=== PATIENT | male | born 1995 | race Caucasian/White ===

== ENCOUNTER 2022-09-18 18:52 | Emergency (ER) | payer MEDICARE, MEDICAID, SELFPAY ==
--- NOTE | 2022-09-18 19:12 | ED_ITS ---
HPI - Eye Problem General Chief complaint: Eye Problems Stated complaint: foreign object in eye Time Seen by Provider: 09/18/22 19:25 Source: patient Mode of arrival: ambulatory Limitations: no limitations History of Present Illness HPI Narrative: Patient is a 27-year-old male presents emergency department for evaluation of a foreign body sensation to the left eye. He states that he was working under his vehicle doing an oil change when he felt something landed into his eye and he was unable to remove it. Vision is blurry. Does not wear contact lenses. Related Data Previous Rx's Medication Instructions Recorded ofloxacin 0.3 % eye drops 2 drp ophthalmic (eye) QID 5 days 09/18/22 #5 mL Allergies Allergy/AdvReac Type Severity Reaction Status Date / Time No Known Allergies Allergy Verified 09/18/22 19:13 Review of Systems Review of Systems: Yes all other systems are reviewed and are negative COUNTS INCLUDE 234 BEDS AT THE [facility] Past Medical History Attestation statement: The following information was validated with the patient. Source: old records reviewed Social History Social History Advance Directives: No Advance Directives Information Provided: No Physical Exam Vital Signs: Vital Signs: Last Vital Signs Temp 98.3 F 09/18/22 19:13 Pulse 72 09/18/22 19:13 Resp 17 09/18/22 19:13 BP 113/57 L 09/18/22 19:13 Pulse Ox 94 09/18/22 19:13 O2 Del Method Room Air 09/18/22 19:13 BMI result Body Mass Index 26.6 Appearance: Alert. Oriented X3. No acute distress. Head: Normal external exam. Normocephalic. Atraumatic.? No Giraldo signs noted. No raccoon eyes noted Eyes: PERRLA. EOMI. Conjunctiva erythematous? Corneal abrasion with fluorescein uptake upon examination? Sclera injected.? Eyelids normal.? Anterior chamber normal.? No photophobia noted.? Pressure to right eye is 16.? Pressure to left eye is 17. Visual acuity to right eye 20/50.? Visual acuity to left eye 20/40. Removal of small particle foreign body Neck: Normal inspection. Neck supple. CVS: Normal heart rate and rhythm. Heart sound normal. No murmurs noted. Pulses normal throughout. Respiratory: No respiratory distress. Painless inspiration. Lung sounds normal. Back:? ?Full range of motion noted. Skin: Skin warm and dry.? Normal skin color.? No rashes/lesions/lacerations noted. Neuro: Oriented X 3.? No motor deficit.? No sensory deficit.? Reflexes normal. Medications Administered Discontinued Medications Generic Name Dose Route Start Last Admin Trade Name Latrell PRN Reason Stop Dose Admin Diphtheria/Tetanus/Acell Pertussis 0.5 ml 09/18/22 19:45 09/18/22 20:13 Diphth,Pertus(Acell),Tet Adult 0.5 Ml Syringe IM 09/18/22 19:46 0.5 ml .ONCE ONE Administration Fluorescein Sodium 1 strip 09/18/22 19:19 09/18/22 20:14 Fluorescein Sodium Strip EYE-LEFT 09/18/22 19:20 1 strip ONCE ONE Administration Tetracaine HCl 3 drop 09/18/22 19:19 09/18/22 20:14 Tetracaine Hcl/Pf 0.5% Oph Angie 4 Ml Drops EYE-LEFT 09/18/22 19:20 3 drop ONCE ONE Administration Medical Decision Making Medical Decision Making MDM Narrative: Patient is a 27-year-old male presents emergency department for evaluation of foreign body sensation to left eye as per HPI. Sustained after working under vehicle. Upon examination a small particle was removed from the left eye, fluorescein uptake upon examination consistent with corneal abrasion. Does not were contact lenses. No penetrating injury, EOMI, no hyphema, not consistent with globe rupture, scleritis, iritis. Intra-ocular pressures are normal, not consistent with glaucoma. Date of last tetanus vaccination is unknown, updated today. Discussed plan of care for discharge, antibiotic ophthalmic drops, outpatient follow-up with Ophthalmology. Reviewed worrisome signs and symptoms that would warrant re-evaluation emergency department. All questions answered. Stable for discharge. Differential Diagnosis Differential Diagnoses: The differential diagnosis associated with the presentation includes (Foreign body, corneal abrasion, corneal ulcer, hyphema, globe rupture, conjunctivitis, scleritis, iritis) Independent Historian Clinical information obtained from an independent historian. History obtained from or confirmed by: Spouse (Significant other who confirms history) Prescription Management I considered prescription management with: Antibiotic Discharge Plan Discharge Clinical Impression: Corneal abrasion Patient Disposition: Home, Self-Care Instructions: Corneal Abrasion (ED) Additional Instructions: As discussed, please complete the antibiotic eyedrops as prescribed. Contact the cardiopulmonary specialist tomorrow or coming to arrange for a follow-up visit. Return back to emergency department with any new or worsening symptoms or concerns. You can take ibuprofen 200 mg, 3 tablets (600mg) every 6-8 hours as needed for pain, in addition to Tylenol 500 mg, 2 tablets (1,000mg) every 4-6 hours as needed for pain, but not to exceed 3 doses daily (3,000mg).? Prescriptions: New ofloxacin 0.3 % drops 2 drp ophthalmic (eye) QID 5 Days Qty: 5 0RF Referrals: [facility] [Physician] - Interventions: ED Discharge Assessment Last Done: 09/18/22 20:19 Discharge Date/Time: 09/18/22 20:19
[2022-09-18 19:13] VITALS: BP 113/57; PULSE 72; RESP 17; TEMP 36.8; O2SAT 94; BMI 26.6
[2022-09-18] MEDS: Diphth,Pertus(ACell),Tet Adult 0.5 ML SYRINGE IM (20:13)
[2022-09-18] MEDS: Tetracaine HCl/PF 0.5% Oph Sol 4 ML DROPS 3 DROP EYE-LEFT (20:14)
[2022-09-18] MEDS: Fluorescein Sodium STRIP 1 STRIP EYE-LEFT (20:14)
== END 2022-09-18 20:19 | disposition home or self-care (01) ==
PROVIDERS: Emergency Provider Emergency Medicine
DX: S05.02XA Injury of conjunctiva and corneal abrasion without foreign body, left eye, initial encounter (principal); Y93.89 Activity, other specified; Y92.89 Other specified places as the place of occurrence of the external cause; Y99.9 Unspecified external cause status
CPT/HCPCS: 90471; 90715; 99282; 99283; 99284

== ENCOUNTER 2022-09-18 22:40 | Emergency (ER) | payer MEDICARE, MEDICAID, SELFPAY ==
[2022-09-18 23:03] VITALS: BP 121/68; PULSE 69; RESP 20; TEMP 36.9; O2SAT 98; BMI 25.8
--- NOTE | 2022-09-19 00:16 | ED_ITS ---
HPI - General Adult General Chief complaint: Eye Problems Stated complaint: foreign object in eye seen earlier Time Seen by Provider: 09/19/22 00:14 Source: patient Mode of arrival: ambulatory Limitations: no limitations History of Present Illness HPI narrative: Patient is a 27 year old assigned male at with no reported medical history presenting to the emergency department today with left eye pain. Patient states that he was seen here earlier today and diagnosed with a corneal abrasion but he feels like there is still something in the left eye and he would like it to be checked again. Patient denies any dizziness, lightheadedness, abdominal pain, nausea, vomiting, fever, chills, blurry vision, double vision, loss of vision, chest pain, difficulty breathing, shortness of breath, back pain, night sweats, pain with urination, increased urinary frequency, increased urinary urgency, blood in his urine or stool, syncope or a near syncopal episode, bowel incontinence, bladder incontinence, bowel retention, bladder retention, or any other complaints at this time. Onset (ago): hour(s) Location: eyes and left Radiation: non-radiation Severity: mild Severity scale (1-10): 3 Quality: aching and dull Pain Consistency: constant Relieving factors: none Exacerbating factors: none Associated symptoms: denies other symptoms Treatments prior to arrival: none Related Data Previous Rx's Medication Instructions Recorded ofloxacin 0.3 % eye drops 2 drp ophthalmic (eye) QID 5 days 09/18/22 #5 mL erythromycin 5 mg/gram (0.5 %) eye 0.5 inch ophthalmic (eye) Q4H #3.5 09/19/22 ointment grams Allergies Allergy/AdvReac Type Severity Reaction Status Date / Time No Known Allergies Allergy Verified 09/18/22 19:13 Review of Systems Constitutional: Constitutional: Reports no additional constitutional complaints, Denies chills, Denies fever(s) and Denies night sweats Eyes: Eyes: Reports no additional eye complaints, Denies blurry vision, Denies change in vision, Denies diplopia, Denies eye discharge, Denies loss of vision and Reports eye pain (left eye) ENT: Denies dizziness Cardiovascular: Cardiovascular: Reports no additional cardiovascular complaints, Denies chest pain, Denies lightheadedness, Denies Loss of Consciousness and Denies dyspnea Respiratory: Respiratory: Reports no additional respiratory complaints and Denies dyspnea Gastrointestinal: Gastrointestinal: Reports no additional gastrointestinal complaints, Denies abdominal pain, Denies melena, Denies hematochezia, Denies c hange in bowel habits and Denies change in stool character Genitourinary: Genitourinary: Reports no additional male genitourinary complaints, Denies hematuria, Denies oliguria, Denies difficulty urinating, Denies dysuria, Denies urinary frequency, Denies urinary hesitancy, Denies urinary incontinence and Denies urinary urgency Musculoskeletal: Musculoskeletal: Reports no additional musculoskeletal complaints, Denies numbness and Denies tingling Neurologic: Denies dizziness, Denies loss of vision, Denies numbness and Denies tingling Psychiatric: Psychiatric: Reports no additional psychiatric complaints Endocrine: Endocrine: Reports no additional endocrine complaints Hematologic/Lymphatic: Hematologic/Lymphatic: Reports no additional hematologic/lymphatic complaints Allergic/Immunologic: Allergic/Immunologic: Reports no additional aller gic/immunologic complaints PMFSH Past Medical History Attestation statement: The following information was validated with the patient. Source: old records reviewed and nursing notes reviewed Social History Social History Advance Directives: No Advance Directives Information Provided: Yes Physical Exam ED Vital Signs: Vital Signs - 24 hr 09/18/22 23:03 Temperature 98.4 F Pulse Rate 69 Respiratory Rate 20 Blood Pressure 121/68 Pulse Oximetry 98 Oxygen Delivery Method Room Air BMI result Body Mass Index 25.8 Const General: cooperative, no acute distress, alert and awake Nutritional Appearance: well nourished Orientation/consciousness: patient oriented x3 Limitations: no limitations [facility] Head: Yes normal to inspection and Yes atraumatic Ears: hearing grossly normal bilaterally and external ears normal General nose exam: Normal external nose present, no nasal discharge noted and no epistaxis Face and sinus: Yes normal facial exam, No abrasion and No laceration Mouth: Normal oral and palatal mucosa present, no drooling and no muffled voice Eyes Other: small abrasion to the inside of the left upper eye lid, no active bleeding Conjunctivae: conjunctivae normal Corneas: other (abrasion) Pupils: Equal, round and reactive pupils present EOM: EOMs intact bilaterally Neck Neck: Yes normal visual inspection, Yes full ROM and Yes no lymphadenopathy Chest Chest palpation & inspection: normal inspection of the chest Resp Effort & Inspection: normal respiratory effort and able to speak in complete sentences GI Inspection: Yes normal to inspection Neuro General: patient oriented x3 and moves all extremities Cranial nerves: Yes Equal, round and reactive pupils present Cognition (Neuro): normal cognition Motor exam (neuro): 5/5 motor strength present throughout Sensory Exam: Normal double simultaneous stimulation for sensation Coordination: [id number] test normal Extrem General: Yes normal to inspection, Yes full ROM and Yes capillary refill normal Psych Appearance: grossly normal Mental Status: mental status grossly normal Affect: normal affect Attitude: cooperative Thought process: Normal thought process present Thought content: Normal thought content present Insight: Good insight present (Psych) Medications Administered Discontinued Medications Generic Name Dose Route Start Last Admin Trade Name Freq PRN Reason Stop Dose Admin Erythromycin 1 cm 09/19/22 00:44 09/19/22 00:59 Erythromycin Base 0.5% Oph Oin 1 Gm Tube EYE-LEFT 09/19/22 00:45 1 cm ONCE ONE Administration Medical Decision Making Medical Decision Making MDM Narrative: Patient is a 27 year old assigned male at with no reported medical history presenting to the emergency department today with continued left eye pain. Patient's physical exam showed a corneal abrasion as noted in his previous ED visit and a small abrasion to the inner portion of this upper left eye lid with no active bleeding. I explained my physical exam findings to the patient. I answered all questions asked by the patient. I stressed the importance of the patient taking his medication as prescribed. I stressed the importance of the patient following up with his primary care provider and an drug discovery informatics specialist. I stressed the importance of the patient returning to the emergency department immediately if his symptoms were to worsen or if he were to develop any dizziness, shortness of breath, difficulty breathing, chest pain, blurry vision, loss of vision, nausea, vomiting, abdominal pain, fever, chills, back pain, or any other complaints. Patient verbalized agreement and understanding with this treatment plan and discharge. Differential Diagnosis Differential Diagnoses: The differential diagnosis associated with the presentation includes Corneal abrasion Abrasion of the inner eye lid Foreign body sensation Prescription Management I considered prescription management with: Antibiotic (patient prescribed antib iotic ointment.) Discharge Plan Discharge Clinical Impression: Corneal abrasion, Injury of eyelid Patient Disposition: Home, Self-Care Instructions: Corneal Abrasion (DC) Additional Instructions: Follow up with your primary care provider and an drug discovery informatics specialist. Continue using the drops you were given and use the ointment prescribed today. Return to the emergency department immediately if your symptoms worsen or if you develop any dizziness, shortness of breath, difficulty breathing, chest pain, blurry vision, loss of vision, nausea, vomiting, abdominal pain, fever, chills, back pain, or any other complaints. Prescriptions: New erythromycin 5 mg/gram (0.5 %) ointment 0.5 inch ophthalmic (eye) Q4H Qty: 3.5 0RF No Action ofloxacin 0.3 % drops 2 drp ophthalmic (eye) QID 5 Days Qty: 5 0RF Referrals: [facility]] (Call to establish and follow up with a primary care provider. If you already have a primary care provider, please follow up with them.) [facility] [Provider Group] (Call to establish and follow up with a primary care provider. If you already have a primary care provider, please follow up with them.) [facility]] (Call to establish and follow up with a primary care provider. If you already have a primary care provider, please follow up with them.) [facility] [Physician] - (Call to establish and follow up with an drug discovery informatics specialist.) Interventions: ED Discharge Assessment Last Done: 09/19/22 01:17 Discharge Date/Time: 09/19/22 01:17 Print Language: Malay
[2022-09-19] MEDS: Erythromycin Base 0.5% Oph Oin 1 GM TUBE 1 CM EYE-LEFT (00:59)
== END 2022-09-19 01:17 | disposition home or self-care (01) ==
PROVIDERS: Emergency Provider Emergency Medicine
DX: H57.12 Ocular pain, left eye (principal); S05.02XD Injury of conjunctiva and corneal abrasion without foreign body, left eye, subsequent encounter; X58.XXXD Exposure to other specified factors, subsequent encounter; S09.93XA Unspecified injury of face, initial encounter; X58.XXXA Exposure to other specified factors, initial encounter; Y93.9 Activity, unspecified; Y92.9 Unspecified place or not applicable; Y99.9 Unspecified external cause status
CPT/HCPCS: 99282; 99283

== ENCOUNTER 2022-10-16 07:42 | Emergency (ER) | payer MEDICARE, SELFPAY ==
--- NOTE | ~2022-10-16 | CT_ITS ---
EXAMINATION: CT ABDOMEN AND PELVIS WITHOUT CONTRAST CLINICAL INFORMATION: Right flank pain COMPARISON: None available. TECHNIQUE: Multidetector volumetric imaging was performed from the superior aspect of the liver through the pubic symphysis. Sagittal and coronal reformatted images were obtained on the technologist's workstation. This CT examination was performed using dose optimization techniques as appropriate, variously including the following: *Automated exposure control *Adjustment of mA and/or kV according to patient size (this includes techniques or standardized protocols for targeted exams where dose is matched to indication/reason for exam; i.e. extremities or head) *Use of iterative reconstruction technique DLP: 642 mGy-cm FINDINGS: LUNG BASES: The visualized lung bases are unremarkable. LIVER, GALLBLADDER, AND BILIARY TREE: The liver is normal in size, shape, and attenuation. No focal hepatic lesion or biliary ductal dilatation is present. The gallbladder is unremarkable with no evidence of radiopaque gallstones, gallbladder wall thickening, or obvious pericholecystic inflammatory changes. PANCREAS: Unremarkable. SPLEEN: Unremarkable. ADRENAL GLANDS: Unremarkable. KIDNEYS AND URETERS: Mild right hydroureteronephrosis, with a 2.5 mm calculus in the right ureterovesicular junction. No renal calculi. No left-sided hydroureteronephrosis. BLADDER: Unremarkable. GASTROINTESTINAL TRACT: The small and large bowel are unremarkable. Moderate volume stool in the large colon.. The appendix is unremarkable. ABDOMINAL WALL: No significant hernia is appreciated. LYMPH NODES: No adenopathy seen. VASCULAR: Normal caliber aorta. PELVIC VISCERA: Unremarkable. OSSEOUS STRUCTURES: No acute osseous abnormality. 2 small sclerotic foci in the right acetabulum, nonspecific, perhaps bone islands. CT/CT abdomen pelvis wo IV con IMPRESSION: 1. Mild right hydroureteronephrosis, with a 2.5 mm calculus in the right ureterovesical junction. 2. Additional findings and details as above. Fleischner guidelines were followed.
[2022-10-16 07:55] VITALS: BP 123/68; PULSE 61; RESP 20; TEMP 36.5; O2SAT 100
[2022-10-16 07:56] VITALS: BP 123/68; PULSE 56; RESP 18; TEMP 36.5; O2SAT 97; BMI 26.0
--- NOTE | 2022-10-16 08:08 | ED.GENADULT ---
HPI - General Adult General Chief complaint: Abdominal Pain Stated complaint: kidney stone Time Seen by Provider: 10/16/22 07:48 Source: patient, family and RN notes reviewed Mode of arrival: ambulatory Limitations: no limitations History of Present Illness HPI narrative: This is a 27-year-old male, with a history of kidney stones, presenting to the emergency department with complaints of right-sided flank pain starting this morning. Patient reports that the pain woke him up from sleep. Pain is constant. He endorses nausea as well as multiple episodes of vomiting this morning. Denies any fevers, chills, chest pain, shortness of breath, diarrhea or constipation. Denies dysuria, hematuria, urinary frequency or urgency. He last had a kidney stone last year which he was able to pass on his own. Denies taking any medications at home to treat his current symptoms. No other complaints or concerns at this time. MD complaint: Right flank pain Onset (ago): minute(s) Radiation: flank Severity: severe Quality: stabbing and aching Pain Consistency: constant Relieving factors: none Exacerbating factors: none Associated symptoms: nausea/vomiting Treatments prior to arrival: none Related Data Previous Rx's Medication Instructions Recorded ofloxacin 0.3 % eye drops 2 drp ophthalmic (eye) QID 5 days 09/18/22 #5 mL erythromycin 5 mg/gram (0.5 %) eye 0.5 inch ophthalmic (eye) Q4H #3.5 09/19/22 ointment grams ketorolac 10 mg tablet 10 mg PO Q6H PRN pain 3 days #12 10/16/22 tabs ondansetron HCl 4 mg tablet 4 mg PO Q6-8H PRN nausea and 10/16/22 vomiting #10 tabs tamsulosin 0.4 mg capsule (Flomax) 0.4 mg PO DAILY 7 days #7 caps 10/16/22 Allergies Allergy/AdvReac Type Severity Reaction Status Date / Time No Known Allergies Allergy Verified 10/18/22 07:38 Review of Systems Review of Systems: Yes all other systems are reviewed and are negative Constitutional: Constitutional: Reports as per [facility] Past Medical History Attestation statement: The following information was validated with the patient. Social History Social History Alcohol intake: never Smoked in Last 30 Days: No Use of substances other than those prescribed or required for medical reasons: No Advance Directives: No Advance Directives Information Provided: No Physical Exam ED Vital Signs: Vital Signs - 24 hr 10/16/22 07:55 10/16/22 07:56 10/16/22 10:23 Temperature 97.7 F 97.7 F 98.4 F Pulse Rate 61 56 52 Respiratory Rate 20 18 16 Blood Pressure 123/68 123/68 106/56 L Pulse Oximetry 100 97 99 Oxygen Delivery Method Room Air Room Air Room Air BMI result Body Mass Index 26.0 Const General: cooperative, comfortable and no acute distress Orientation/consciousness: patient oriented x3 Limitations: no limitations HENMT Head: Yes normal to inspection, Yes normocephalic and Yes atraumatic Ears: hearing grossly normal bilaterally General nose exam: Normal external nose present Face and sinus: Yes normal facial exam Mouth: Normal oral and palatal mucosa present, oropharynx normal and moist mucous membranes Throat: Yes posterior oropharynx normal Eyes General: appearance normal, both eyes and all related structures Eyelids: Yes eyelids normal Conjunctivae: conjunctivae normal Sclerae: sclerae normal Pupils: Equal, round and reactive pupils present EOM: EOMs intact bilaterally Neck Neck: Yes normal visual inspection, Yes full ROM and Yes no lymphadenopathy Lymphatic: no lymphadenopathy noted Chest Chest palpation & inspection: normal inspection of the chest Resp Effort & Inspection: normal respiratory effort and able to speak in complete sentences Auscultation: clear to auscultation bilaterally, no crackles, no rales, no rhonchi and no wheezes Cardio Rate: regular rate Rhythm: regular rhythm Heart sounds: S1 normal heart sound present and S2 normal heart sound present GI Other: Abdomen is soft, nontender, nondistended, normoactive bowel sounds present in all 4 quadrants. Inspection: Yes normal to inspection Other: + CVA tenderness on the right. Skin General skin exam: no rashes or lesions noted Trauma: no lacerations or abrasions Wounds: no wounds Neuro General: patient oriented x3 and moves all extremities Cranial nerves: Yes Equal, round and reactive pupils present Extrem General: Yes normal to inspection Right upper extremity: normal to inspection Left upper extremity: normal to inspection Right lower extremity: normal to inspection Left lower extremity: normal to inspection Course Reevaluation(s) Reevaluation #1: Patient re-evaluated, pain has resolved after receiving Toradol [address] abdomen still pending. Time: 08:52 Reevaluation #2: CT scan showing mild right hydroureter nephrosis with a 2.5 mm calculus in the right ureterovesical junction. Chemistry pending, UA pending Time: 09:31 Reevaluation #3: Chemistry WNL, no evidence of RAMSES. UA revealing hematuria, no signs of infection. Pt's pain has completely resolved after toradol. D/C on ketorolac, flomax and zofran. discussed return precautions. Pt understands and agrees with plan. Pt stable for discharge. Consultations Consultation #3: nding, Medications Administered Discontinued Medications Generic Name Dose Route Start Last Admin Trade Name Freq PRN Reason Stop Dose Admin Sodium Chloride 1,000 mls @ 999 mls/hr 10/16/22 08:01 10/16/22 09:14 Ns IV 10/16/22 09:01 Infused .Q1H1M ONE Infusion Ketorolac Tromethamine 30 mg 10/16/22 08:01 10/16/22 08:12 Ketorolac Tromethamine 30 Mg/Ml Vial IVPUSH 10/16/22 08:02 30 mg ONCE ONE Administration Ondansetron HCl 4 mg 10/16/22 08:01 10/16/22 08:12 Ondansetron Hcl 4 Mg/2 Ml Vial IVPUSH 10/16/22 08:02 4 mg ONCE ONE Administration Medical Decision Making Medical Decision Making [facility] Narrative: This is a 27-year-old male, with a past medical history of kidney stones, presenting to the emergency department with complaints of right-sided flank pain starting this morning. On examination, patient appears to be visibly uncomfortable secondary to pain. Vital signs all within normal limits. No fevers. Presentation concerning for nephrolithiasis versus pyelonephritis. Less likely cauda equina syndrome given no urinary/bowel incontinence or saddle anesthesias. Less likely muscle strain/MSK related given no recent injury or trauma. Plan: Labs, UA, pain management, antiemetics, CT without contrast Differential Diagnosis Differential Diagnoses: The differential diagnosis associated with the presentation includes Nephrolithiasis, pyelonephritis, hydronephrosis, obstructive uropathy Admission/Observation Consideration of admission/observation: Escalation of care including admission/observation considered Lab Data MDM Lab Attestation statement: I reviewed the patient's lab results. Mild leukocytosis, H&H stable. Urine with moderate blood, consistent with nephrolithiasis. No evidence of infection. 10/16/22 08:08 10/16/22 08:08 Labs: Lab Results 10/16/22 10/16/22 10/16/22 Range/Units 08:08 09:22 10:24 WBC 11.5 H (4.8-10.8) X10*3/uL RBC 5.62 (4.60-5.80) X10*6/uL Hgb 15.9 (14.0-18.0) g/dl Hct 47.7 (42.0-52.0) % MCV 84.9 (80.0-98.0) fL MCH 28.3 (27.0-33.0) pg MCHC 33.3 (31.0-36.0) g/dl RDW 12.4 (11.0-16.0) % Plt Count 221 (160-400) X10*3/uL MPV 12.0 (9.4-12.4) fL Immature Gran % (Auto) 0.3 (0.0-0.4) % Neut % (Auto) 52.5 (45-73) % Lymph % (Auto) 36.8 (20-40) % [place] % (Auto) 8.2 (2-11) % Eos % (Auto) 1.7 (0-4) % Baso % (Auto) 0.5 (0-2) % Lymph # (Auto) 4.2 (1.2-4.9) X10*3/uL [place] # (Auto) 0.9 (0.1-1.2) X10*3/uL Eos # (Auto) 0.2 (0.0-0.4) X10*3/uL Baso # (Auto) 0.1 (0.0-0.2) X10*3/uL Abs Immat Gran (auto) 0.04 H (0.00-0.03) X10*3/uL Absolute Neuts (auto) 6.0 (2.0-8.3) x10*3/uL Absolute Nucleated RBC 0.000 (0.0-0.012) X10*3/uL Nucleated RBC % (auto) 0.0 (0.0-0.2) /100WBC Sodium 141 (135-145) mmol/L Potassium 4.0 (3.3-5.1) mmol/L Chloride 107 (96-108) mmol/L Carbon Dioxide 25 (22-29) mmol/L Anion Gap 13 (12-20) BUN 11 (9-16) mg/dL Creatinine 0.93 (0.5-1.4) mg/dL Estim Creat Clear Calc 133.2 Estimated GFR > 60 Random Glucose 94 (60-115) mg/dL Calcium 9.2 (8.4-10.2) mg/dL Total Bilirubin 0.5 (0.0-1.0) mg/dL Direct Bilirubin 0.2 (0.0-0.5) mg/dL AST 21 (5-37) U/L ALT 25 (0-40) U/L Alkaline Phosphatase 85 (39-117) U/L Total Protein 6.5 (6.5-8.0) g/dL Albumin 3.9 (3.5-5.0) g/dL Lipase 15 (8-78) U/L Urine Color Yellow Urine Appearance Clear Urine pH 7.5 (5.0-9.0) Ur Specific [place] 1.010 (1.005-1.025) Urine Protein Negative (Neg-Trace) mg/dL Urine Glucose (UA) Negative (Negative) mg/dL Urine Ketones Negative (Negative) mg/dL Urine Blood Trace H (Negative) Urine Nitrite Negative (Negative) Ur Leukocyte Esterase Negative (Negative) Urine RBC 3-5 H (0-2) /HPF Urine WBC 0-5 (0-5) /HPF Ur Squamous Epith Cells 0-2 (0-2) /HPF Urine Bacteria None Seen (None Seen) Hyaline Casts 0-2 (0-2) /LPF Radiology Impression Discussion of test interpretation with radiology: I have reviewed the radiologist's reading. Radiologist Impression: EXAMINATION: CT ABDOMEN AND PELVIS WITHOUT CONTRAST? CLINICAL INFORMATION: Right flank pain? COMPARISON: None available. TECHNIQUE: Multidetector volumetric imaging was performed from the superior aspect of the liver through the pubic symphysis. Sagittal and coronal reformatted images were obtained on the technologist's workstation.? This CT examination was performed using dose optimization techniques as appropriate, variously including the following: *Automated exposure control *Adjustment of mA and/or kV according to patient size (this includes techniques or standardized protocols for targeted exams where dose is matched to indication/reason for exam; i.e. extremities or head) *Use of iterative reconstruction technique DLP: 642 mGy-cm FINDINGS: LUNG BASES: The visualized lung bases are unremarkable.? LIVER, GALLBLADDER, AND BILIARY TREE: The liver is normal in size, shape, and attenuation. No focal hepatic lesion or biliary ductal dilatation is present. The gallbladder is unremarkable with no evidence of radiopaque gallstones, gallbladder wall thickening, or obvious pericholecystic inflammatory changes.? PANCREAS: Unremarkable.? SPLEEN: Unremarkable.? ADRENAL GLANDS: Unremarkable.? KIDNEYS AND URETERS: Mild right hydroureteronephrosis, with a 2.5 mm calculus in the right ureterovesicular junction. No renal calculi. No left-sided hydroureteronephrosis.? BLADDER: Unremarkable.? GASTROINTESTINAL TRACT: The small and large bowel are unremarkable. Moderate volume stool in the large colon.. The appendix is unremarkable.? ABDOMINAL WALL: No significant hernia is appreciated.? LYMPH NODES: No adenopathy seen. VASCULAR: Normal caliber aorta. PELVIC VISCERA: Unremarkable.? OSSEOUS STRUCTURES: No acute osseous abnormality. 2 small sclerotic foci in the right acetabulum, nonspecific, perhaps bone islands.? CT/CT abdomen pelvis wo IV con IMPRESSION: ? 1. Mild right hydroureteronephrosis, with a 2.5 mm calculus in the right ureterovesical junction. ? 2. Additional findings and details as above.? ? Fleischner guidelines were followed. Dictated By: Jose Rios MD External Record Review External record reviewed: Inpatient record, Office record, Outpatient record, Prior outpatient labs, Prior outpatient radiology, Primary care record and Outside ED record Discharge Plan Discharge Clinical Impression: Kidney stones Patient Disposition: Home, Self-Care Instructions: Kidney Stones (ED), How to Strain Your Urine (ED) Additional Instructions: Your CT scan reveals a 2.5 mm kidney stone. You will likely be able to pass this on your own, without any surgical intervention. Use strainer when urinating to ensure you have passed the stone. Please drink plenty of fluids and get plenty of rest. Take prescribed medication as directed. If your taking prescribed Toradol, do not take with any other NSAID medications such as ibuprofen or Naprosyn. You may take Tylenol for breakthrough pain. If any new or worsening symptoms occur, including but not limited to worsening pain, unable to your drink secondary to vomiting, please return for re-evaluation. You may follow-up with Urology, call to make appointment. Prescriptions: New ketorolac 10 mg tablet 10 mg PO Q6H PRN (Reason: pain) 3 Days Qty: 12 0RF Rx Instructions: Patient tolerated Toradol injection in department on 10/16/22. Do not exceed Toradol 40 mg in 24 hours ondansetron HCl 4 mg tablet 4 mg PO Q6-8H PRN (Reason: nausea and vomiting) Qty: 10 0RF tamsulosin [Flomax] 0.4 mg capsule 0.4 mg PO DAILY 7 Days Qty: 7 0RF No Action ofloxacin 0.3 % drops 2 drp ophthalmic (eye) QID 5 Days Qty: 5 0RF erythromycin 5 mg/gram (0.5 %) ointment 0.5 inch ophthalmic (eye) Q4H Qty: 3.5 0RF [place] [facility] [place] [facility] [place] Interventions: ED Discharge Assessment Last Done: 10/16/22 11:26 Discharge Date/Time: 10/16/22 11:27
[2022-10-16 08:12] LABS: MANUAL DIFF FLAG NO
[2022-10-16] MEDS: Ketorolac Tromethamine 30 MG/ML VIAL IVPUSH (08:12)
[2022-10-16] MEDS: ondansetron HCL 4 MG/2 ML VIAL IVPUSH (08:12)
[2022-10-16] MEDS: 0.9 % Sodium Chloride 1,000 ML 999 ML IV (08:12)
[2022-10-16 08:16] LABS: Basophils Absolute Auto 0.1 X10*3/uL (0.0-0.2); Basophils Percent Auto 0.5 % (0-2); Eosinophils Absolute Auto 0.2 X10*3/uL (0.0-0.4); Eosinophils Percent Auto 1.7 % (0-4); Hematocrit 47.7 % (42.0-52.0); Hemoglobin 15.9 g/dl (14.0-18.0); Imm Gran Abs Auto 0.04 X10*3/uL (0.00-0.03); Imm Gran Pct Auto 0.3 % (0.0-0.4); Lymphocytes Absolute Auto 4.2 X10*3/uL (1.2-4.9); Lymphocytes Percent Auto 36.8 % (20-40); Mean Corpuscular HGB Conc 33.3 g/dl (31.0-36.0); Mean Corpuscular Hemoglobin 28.3 pg (27.0-33.0); Mean Corpuscular Volume 84.9 fL (80.0-98.0); Monocytes Absolute Auto 0.9 X10*3/uL (0.1-1.2); Monocytes Percent Auto 8.2 % (2-11); Neutrophils Percent Auto 52.5 % (45-73); Platelet Count 221 X10*3/uL (160-400); Red Blood Count 5.62 X10*6/uL (4.60-5.80); Red Cell Distribution Width 12.4 % (11.0-16.0); White Blood Count 11.5 X10*3/uL (4.8-10.8)
[2022-10-16 10:23] VITALS: BP 106/56; PULSE 52; RESP 16; TEMP 36.9; O2SAT 99
[2022-10-16 10:31] LABS: Appearance Urine Clear; Color Urine Yellow; Glucose Urine UA Negative (Negative); Leukocyte Esterase Urine Negative (Negative); Nitrite Urine Negative (Negative); PH 7.5 (5.0-9.0); UMIC TRIGGER UACC YES; Urine Blood Trace (Negative); Urine Ketones Negative (Negative); Urine Protein Negative (Neg-Trace)
[2022-10-16 10:34] LABS: Bacteria Urine None Seen (None Seen); Hyaline Casts Urine 0-2 /LPF (0-2); Squamous Epithelial Cell Urine 0-2 /HPF (0-2); WBC Urine 0-5 /HPF (0-5)
[2022-10-16 10:34] LABS: Alanine Aminotransferase 25 U/L (0-40); Albumin Level 3.9 g/dL (3.5-5.0); Alkaline Phosphatase 85 U/L (39-117); Anion Gap 13 (12-20); Aspartate Amino Transferase 21 U/L (5-37); Bilirubin Direct 0.2 mg/dL (0.0-0.5); Bilirubin Total 0.5 mg/dL (0.0-1.0); Blood Urea Nitrogen 11 mg/dL (9-16); Calcium 9.2 mg/dL (8.4-10.2); Carbon Dioxide 25 mmol/L (22-29); Chloride 107 mmol/L (96-108); Creatinine Clr Calc Pharmacy 133.2; Estimated Glomerular Filt Rate > 60; Glucose Random 94 mg/dL (60-115); Lipase 15 U/L (8-78); Sodium 141 mmol/L (135-145); Total Protein 6.5 g/dL (6.5-8.0)
== END 2022-10-16 11:27 | disposition home or self-care (01) ==
PROVIDERS: Physician Assistant Medical; Emergency Provider Emergency Medicine
DX: N20.0 Calculus of kidney (principal); R10.9 Unspecified abdominal pain; Z79.899 Other long term (current) drug therapy
CPT/HCPCS: 36415; 74176; 80048; 80076; 81001; 83690; 85025; 99284; 99285; J1885; J2405

== ENCOUNTER 2022-10-18 07:32 | Emergency (ER) | payer MEDICARE, SELFPAY ==
[2022-10-18] VITALS (7 sets, daily range): BP systolic 99–132; BP diastolic 42–78; PULSE 45–71; RESP 14–19; TEMP 36.6–37.2; O2SAT 98–100; BMI 27.2
--- NOTE | ~2022-10-18 | US_ITS ---
EXAMINATION: US RETROPERITONEAL LIMITED (RENAL ONLY) CLINICAL INFORMATION: Right flank pain. History of stones.. COMPARISON: CT abdomen and pelvis 10/16/2022 TECHNIQUE: Routine grayscale imaging of kidneys and bladder was performed. FINDINGS: RIGHT KIDNEY: 10.8 x 5.6 x 6.8 cm (SAG x AP x TRV). The kidney is normal in size, contour, and echogenicity. Renal cortical thickness is normal. No calculi or focal parenchymal lesions. There is mild hydronephrosis with proximal dilated ureter seen.. LEFT KIDNEY: 11.8 x 6.1 x 5.1 cm (SAG x AP x TRV). The kidney is normal in size, contour, and echogenicity. Renal cortical thickness is normal. No calculi or focal parenchymal lesions. No hydronephrosis. US/US renal BI IMPRESSION: 1. Mild right hydroureteronephrosis and dilated proximal ureter. On recent CT patient had a right UVJ stone. 2. Left kidney is unremarkable. 3. There are no echogenic renal calculi.
--- NOTE | 2022-10-18 07:37 | ED_ITS ---
HPI - General Adult General Chief complaint: Urogenital-Male Stated complaint: Kidney Stones Time Seen by Provider: 10/18/22 07:36 Source: patient Mode of arrival: ambulatory Limitations: no limitations History of Present Illness HPI narrative: Patient is a 27 year old male with a history of kidney stones presenting with right flank pain. Patient explains that he was a seen here two days ago, was found to have a kidney stone and was treated with medication but the pain has now returned. He reports 11/10 right sided flank pain. Patient also states that the pain has led him to be nauseous and vomit several times today. Denies fever, chills, chest pain, shortness of breath, changes in urination or dysuria. Related Data Previous Rx's Medication Instructions Recorded ofloxacin 0.3 % eye drops 2 drp ophthalmic (eye) QID 5 days 09/18/22 #5 mL erythromycin 5 mg/gram (0.5 %) eye 0.5 inch ophthalmic (eye) Q4H #3.5 09/19/22 ointment grams ketorolac 10 mg tablet 10 mg PO Q6H PRN pain 3 days #12 10/16/22 tabs ondansetron HCl 4 mg tablet 4 mg PO Q6-8H PRN nausea and 10/16/22 vomiting #10 tabs tamsulosin 0.4 mg capsule (Flomax) 0.4 mg PO DAILY 7 days #7 caps 10/16/22 morphine 15 mg immediate release 15 mg PO Q6H PRN pain 5 days #10 10/18/22 tablet tabs Allergies Allergy/AdvReac Type Severity Reaction Status Date / Time No Known Allergies Allergy Verified 10/18/22 07:38 Review of Systems Review of Systems: Constitutional : No Weight loss, No Fever, No Chills, + Fatigue and Malaise ENT/Mouth : No sore throat, No Rhinorrhea Eyes: No Eye Pain, No Swelling, No Redness Cardiovascular : No Chest Pain, No SOB, No Dyspnea on Exertion, No Orthopnea, No Edema, No Palpitations Respiratory : No Cough, No Sputum, No Wheezing Gastrointestinal : + Nausea and Vomiting, No Diarrhea, No Constipation, No abdominal Pain, No Hematochezia, No Melena Genitourinary : No Dysuria, No Urinary Frequency, No Hematuria, Musculoskeletal : +Right flank pain, No joint pain, No Joint Swelling Skin : No Skin Lesions, No rash Neuro : No Weakness, No Numbness, No Dizziness, No Headache Psych : No Anxiety/Panic, No Depression All other systems reviewed and are negative Yes all other systems are reviewed and are negative [facility] Past Medical History Attestation statement: The following information was validated with the patient. Source: old records reviewed and nursing notes reviewed Social History Social History Alcohol intake: never Smoked in Last 30 Days: No Use of substances other than those prescribed or required for medical reasons: No Advance Directives: No Advance Directives Information Provided: No Physical Exam ED Vital Signs: Vital Signs - 24 hr 10/18/22 07:38 10/18/22 08:05 10/18/22 09:22 Temperature 98 F 98.9 F Pulse Rate 71 61 45 L Respiratory Rate 19 18 18 Blood Pressure 123/78 132/76 109/55 L Pulse Oximetry 100 100 100 Oxygen Delivery Method Room Air Room Air Room Air 10/18/22 11:56 10/18/22 13:54 10/18/22 14:01 Temperature 98.7 F 98.4 F Pulse Rate 50 50 Respiratory Rate 18 14 16 Blood Pressure 110/64 99/42 L Pulse Oximetry 100 100 Oxygen Delivery Method Room Air Room Air BMI result Body Mass Index 27.2 VSS Appearance: Alert.? Oriented X3.?Patient is visibly uncomfortable and in pain, rocking back and forth in bed. Head: Normocephalic, atraumatic, no step-offs or deformities Eyes: Pupils equal, round and reactive to light.? CVS: Normal heart rate and rhythm.? Pulses normal.? Respiratory: No respiratory distress.? Breath sounds normal.? Abdomen: Soft and nontender.? Skin: Skin warm and dry.? Normal skin color.? Normal skin turgor.? Extremities: No lower extremity edema.? No calf ttp. 5/5 strength to bilateral upper and lower extremities Back: +Right flank tenderness, No midline tenderness, no C-spine tenderness, full range of motion. Neuro: Oriented X 3.? No motor deficit.? No sensory deficit. CN 2-12 intact Course Reevaluation(s) Reevaluation #1: CBC within normal limits. Chemistry with slightly low potassium 3.2, troponin negative. Patient's urine with trace blood and urine rbc's. No bacteria no leukocyte esterases or nitrates no signs of UTI. Ultrasound showing mild right hydroureter nephrosis and dilated proximal ureter on recent CT patient had a right UVJ stone, small, left kidney unremarkable. No echogenic renal calculi. I did discuss this case with Urology and discussed ultrasound findings, Dr. Marielena bishop recommends Dilaudid for pain control, an additional L of fluids, does not think a CT scan of abdomen pelvis repeat is necessary. She would like to be informed on patient's pain in about an hour. Will reach back out to her. Time: 13:48 Reevaluation #2: Patient reports his pain is completely gone. Discussed this with Dr. baez will discharge patient home on morphine for pain control. He should continue taking his meds that were prescribed to him on his last visit encouraged urology follow-up as soon as possible. Educated patient on diagnosis and treatment plan, answered all question, patient verbalizes understanding. At this time patient will be discharged home, advised to return with new or worsening symptoms. Educated on worrisome signs and symptoms and when to return. At this time I feel comfortable discharge home. Time: 15:33 Medications Administered Discontinued Medications Generic Name Dose Route Start Last Admin Trade Name Freq PRN Reason Stop Dose Admin Diphenhydramine HCl 25 mg 10/18/22 12:45 10/18/22 12:51 Diphenhydramine Hcl 50 Mg/Ml Vial IVPUSH 10/18/22 12:46 25 mg ONCE ONE Administration Hydromorphone HCl 0.5 mg 10/18/22 13:45 10/18/22 14:01 Hydromorphone Hcl 0.5 Mg/0.5 Ml Syringe IVPUSH 10/18/22 13:46 0.5 mg ONCE ONE Administration Protocol Sodium Chloride 1,000 mls @ 999 mls/hr 10/18/22 08:15 10/18/22 09:22 Ns IV 10/18/22 09:15 Infused .Q1H1M RAOUL Infusion Sodium Chloride 1,000 mls @ 999 mls/hr 10/18/22 13:45 10/18/22 13:58 Ns IV 10/18/22 14:45 999 mls/hr .Q1H1M RAOUL Administration Ceftriaxone Sodium 1 gm/ 50 mls @ 100 mls/hr 10/18/22 13:45 10/18/22 14:03 Sodium Chloride IV 10/18/22 14:14 100 mls/hr ONCE ONE Administration Ketorolac Tromethamine 30 mg 10/18/22 08:01 10/18/22 08:21 Ketorolac Tromethamine 15 Mg/Ml Vial IM 10/18/22 08:02 30 mg ONCE ONE Administration Lorazepam 1 mg 10/18/22 08:55 10/18/22 09:16 Lorazepam 1 Mg Tablet PO 10/18/22 08:56 1 mg ONCE ONE Administration Metoclopramide HCl 10 mg 10/18/22 12:45 10/18/22 12:51 Metoclopramide Hcl 10 Mg/2 Ml Vial IVPUSH 10/18/22 12:46 10 mg ONCE ONE Administration Morphine Sulfate 4 mg 10/18/22 08:04 10/18/22 08:22 Morphine Sulfate 4 Mg/Ml Cartridge IVPUSH 10/18/22 08:05 4 mg ONCE ONE Administration Protocol Ondansetron HCl 4 mg 10/18/22 09:14 10/18/22 09:19 Ondansetron Hcl 4 Mg/2 Ml Vial IVPUSH 10/18/22 09:15 4 mg ONCE ONE Administration Prednisone 20 mg 10/18/22 13:45 10/18/22 13:57 Prednisone 20 Mg Tablet PO 10/18/22 13:46 20 mg ONCE ONE Administration Medical Decision Making Medical Decision Making [facility] Narrative: 0740 27 year old male presenting with intermittent right flank pain that has been going for a few days, worsening today after being seen two days ago for similar symptoms. Nausea and vomiting are new symptoms starting yesterday. Exam significant for right flank tenderness. This is likely nephrolithiasis. Unlikely cystitis, pyelonephritis due to lack of fever, chills, or urinary symptoms. Unlikely muscle spasms, sprain or strain due to lack of trauma or injury. Unlikely cauda equina due to lack of trauma, incontinence or paresthesias no signs of epidural abscess or cord compression. Plan: labs, urine, imaging Differential Diagnosis Differential Diagnoses: The differential diagnosis associated with the presentation includes This is likely nephrolithiasis. Unlikely cystitis, pyelonephritis due to lack of fever, chills, or urinary symptoms. Unlikely muscle spasms, sprain or strain due to lack of trauma or injury. Unlikely cauda equina due to lack of trauma, incontinence or paresthesias no signs of epidural abscess or cord compression. Admission/Observation Consideration of admission/observation: Escalation of care including admission/observation considered unlikely Consult Healthcare Provider Management of the patient was discussed with: Rn Embedded (Urology ) Lab Data [facility] Lab Attestation statement: I reviewed the patient's lab results. 10/18/22 08:15 10/18/22 09:07 Labs: Lab Results 10/18/22 10/18/22 10/18/22 Range/Units 08:15 09:07 09:07 WBC 9.3 (4.8-10.8) X10*3/uL RBC 5.68 (4.60-5.80) X10*6/uL Hgb 16.0 (14.0-18.0) g/dl Hct 46.5 (42.0-52.0) % MCV 81.9 (80.0-98.0) fL MCH 28.2 (27.0-33.0) pg MCHC 34.4 (31.0-36.0) g/dl RDW 12.1 (11.0-16.0) % Plt Count 193 (160-400) X10*3/uL MPV 11.7 (9.4-12.4) fL Immature Gran % (Auto) 0.2 (0.0-0.4) % Neut % (Auto) 69.9 (45-73) % Lymph % (Auto) 21.3 (20-40) % Ogle % (Auto) 7.7 (2-11) % Eos % (Auto) 0.6 (0-4) % Baso % (Auto) 0.3 (0-2) % Lymph # (Auto) 2.0 (1.2-4.9) X10*3/uL Ogle # (Auto) 0.7 (0.1-1.2) X10*3/uL Eos # (Auto) 0.1 (0.0-0.4) X10*3/uL Baso # (Auto) 0.0 (0.0-0.2) X10*3/uL Abs Immat Gran (auto) 0.02 (0.00-0.03) X10*3/uL Absolute Neuts (auto) 6.5 (2.0-8.3) x10*3/uL Absolute Nucleated RBC 0.000 (0.0-0.012) X10*3/uL Nucleated RBC % (auto) 0.0 (0.0-0.2) /100WBC Sodium 142 (135-145) mmol/L Potassium 3.2 L (3.3-5.1) mmol/L Chloride 106 (96-108) mmol/L Carbon Dioxide 23 (22-29) mmol/L Anion Gap 16 (12-20) BUN 13 (9-16) mg/dL Creatinine 0.97 (0.5-1.4) mg/dL Estim Creat Clear Calc 127.7 Estimated GFR > 60 Random Glucose 112 (60-115) mg/dL Calcium 9.8 D (8.4-10.2) mg/dL Magnesium 1.6 (1.6-2.6) mg/dL Total Bilirubin 0.9 (0.0-1.0) mg/dL AST 24 (5-37) U/L ALT 26 (0-40) U/L Alkaline Phosphatase 86 (39-117) U/L Troponin I High Sens < 2.7 (<3.5-35.0) ng/L Total Protein 7.3 (6.5-8.0) g/dL Albumin 4.3 (3.5-5.0) g/dL Urine Color Urine Appearance Urine pH (5.0-9.0) Ur Specific [place] (1.005-1.025) Urine Protein (Neg-Trace) mg/dL Urine Glucose (UA) (Negative) mg/dL Urine Ketones (Negative) mg/dL Urine Blood (Negative) Urine Nitrite (Negative) Ur Leukocyte Esterase (Negative) Urine RBC (0-2) /HPF Urine WBC (0-5) /HPF Ur Squamous Epith Cells (0-2) /HPF Urine Bacteria (None Seen) Hyaline Casts (0-2) /LPF 10/18/22 Range/Units 11:48 WBC (4.8-10.8) X10*3/uL RBC (4.60-5.80) X10*6/uL Hgb (14.0-18.0) g/dl Hct (42.0-52.0) % MCV (80.0-98.0) fL MCH (27.0-33.0) pg MCHC (31.0-36.0) g/dl RDW (11.0-16.0) % Plt Count (160-400) X10*3/uL MPV (9.4-12.4) fL Immature Gran % (Auto) (0.0-0.4) % Neut % (Auto) (45-73) % Lymph % (Auto) (20-40) % Ogle % (Auto) (2-11) % Eos % (Auto) (0-4) % Baso % (Auto) (0-2) % Lymph # (Auto) (1.2-4.9) X10*3/uL Ogle # (Auto) (0.1-1.2) X10*3/uL Eos # (Auto) (0.0-0.4) X10*3/uL Baso # (Auto) (0.0-0.2) X10*3/uL Abs Immat Gran (auto) (0.00-0.03) X10*3/uL Absolute Neuts (auto) (2.0-8.3) x10*3/uL Absolute Nucleated RBC (0.0-0.012) X10*3/uL Nucleated RBC % (auto) (0.0-0.2) /100WBC Sodium (135-145) mmol/L Potassium (3.3-5.1) mmol/L Chloride (96-108) mmol/L Carbon Dioxide (22-29) mmol/L Anion Gap (12-20) BUN (9-16) mg/dL Creatinine (0.5-1.4) mg/dL Estim Creat Clear Calc Estimated GFR Random Glucose (60-115) mg/dL Calcium (8.4-10.2) mg/dL Magnesium (1.6-2.6) mg/dL Total Bilirubin (0.0-1.0) mg/dL AST (5-37) U/L ALT (0-40) U/L Alkaline Phosphatase (39-117) U/L Troponin I High Sens (<3.5-35.0) ng/L Total Protein (6.5-8.0) g/dL Albumin (3.5-5.0) g/dL Urine Color Yellow Urine Appearance Clear Urine pH 8.0 (5.0-9.0) Ur Specific [place] 1.015 (1.005-1.025) Urine Protein Negative (Neg-Trace) mg/dL Urine Glucose (UA) Negative (Negative) mg/dL Urine Ketones 15 (Negative) mg/dL Urine Blood Trace H (Negative) Urine Nitrite Negative (Negative) Ur Leukocyte Esterase Negative (Negative) Urine RBC 6-10 H (0-2) /HPF Urine WBC 0-5 (0-5) /HPF Ur Squamous Epith Cells 0-2 (0-2) /HPF Urine Bacteria None Seen (None Seen) Hyaline Casts 0-2 (0-2) /LPF Independent Interpretation I performed an independent interpretation of an: Ultrasound (US/US renal BI IMPRESSION: 1. Mild right hydroureteronephrosis and dilated proximal ureter. On recent CT patient had a right UVJ stone. 2. Left kidney is unremarkable. 3. There are no echogenic renal calculi. ) Radiology Impression Discussion of test interpretation with radiology: I have reviewed the radiologist's reading. Tests considered The following testing was considered but not selected: CT completed two days ago, not clinically indicated at this time. Prescription Management I considered prescription management with: Pain Medication Toradol and Morphine given in the ED. Core Measures AMI core measures followed: Yes Measure exclusions: not indicated Critical Care Time Critical Care Time Critical Care Time: Yes Total Critical Care Time: 35 Attestation: I attest to this time spent taking care of the patient, obtaining history, physical, reviewing labs, imaging, speaking to my attending, speaking to specialist. Discharge Plan Discharge Clinical Impression: Kidney calculi, Hydroureteronephrosis Patient Disposition: Home, Self-Care Instructions: Kidney Stones (ED) Additional Instructions: Continue taking your medications are prescribed on 10/14/2022 from her previous emergency department visit. You need to follow-up with urology. A narcotic has been sent to your pharmacy please take this as prescribed. Do not take more than the prescribed dose. Narcotic medications can cause mike ction. Please do not mix them with alcohol. Do not take them while driving or operating machinery. Do not take them with any other narcotics. Do not share them with friends or family. They can cause constipation. Take them only for severe pain. Take your medications as prescribed. If you were prescribed antibiotics today, it is important that you take your medication to their entirety, do not skip any doses, do not finish them early. Follow-up with your primary care provider this week. Return to the emergency department with new or worsening symptoms. Such as fevers, chills, chest pain, shortness of breath, nausea, vomiting, dizziness, headache, vision changes, lethargy In case of emergency call 911 Prescriptions: New morphine 15 mg tablet 15 mg PO Q6H PRN (Reason: pain) 5 Days Qty: 10 0RF Rx Instructions: Partial Fill upon patient request. No Action ofloxacin 0.3 % drops 2 drp ophthalmic (eye) QID 5 Days Qty: 5 0RF erythromycin 5 mg/gram (0.5 %) ointment 0.5 inch ophthalmic (eye) Q4H Qty: 3.5 0RF ketorolac 10 mg tablet 10 mg PO Q6H PRN (Reason: pain) 3 Days Qty: 12 0RF Rx Instructions: Patient tolerated Toradol injection in department on 10/16/22. Do not exceed Toradol 40 mg in 24 hours ondansetron HCl 4 mg tablet 4 mg PO Q6-8H PRN (Reason: nausea and vomiting) Qty: 10 0RF tamsulosin [Flomax] 0.4 mg capsule 0.4 mg PO DAILY 7 Days Qty: 7 0RF Referrals: [facility] [place] [facility] [Provider Group] - 1 week Stand Alone Forms: Work/School Release
[2022-10-18 08:19] LABS: MANUAL DIFF FLAG NO
[2022-10-18 08:21] LABS: Basophils Percent Auto 0.3 % (0-2); Eosinophils Absolute Auto 0.1 X10*3/uL (0.0-0.4); Eosinophils Percent Auto 0.6 % (0-4); Hematocrit 46.5 % (42.0-52.0); Imm Gran Abs Auto 0.02 X10*3/uL (0.00-0.03); Imm Gran Pct Auto 0.2 % (0.0-0.4); Lymphocytes Percent Auto 21.3 % (20-40); Mean Corpuscular HGB Conc 34.4 g/dl (31.0-36.0); Mean Corpuscular Hemoglobin 28.2 pg (27.0-33.0); Mean Corpuscular Volume 81.9 fL (80.0-98.0); Mean Platelet Volume 11.7 fL (9.4-12.4); Monocytes Absolute Auto 0.7 X10*3/uL (0.1-1.2); Monocytes Percent Auto 7.7 % (2-11); Neutrophils Absolute Auto 6.5 x10*3/uL (2.0-8.3); Neutrophils Percent Auto 69.9 % (45-73); Platelet Count 193 X10*3/uL (160-400); Red Blood Count 5.68 X10*6/uL (4.60-5.80); Red Cell Distribution Width 12.1 % (11.0-16.0); White Blood Count 9.3 X10*3/uL (4.8-10.8)
[2022-10-18] MEDS: Ketorolac Tromethamine 15 MG/ML VIAL 30 MG IM (08:21)
[2022-10-18] MEDS: 0.9 % Sodium Chloride 1,000 ML 999 ML IV ×2 (08:21→13:58)
[2022-10-18] MEDS: Morphine Sulfate 4 MG/ML CARTRIDGE IVPUSH (08:22)
--- NOTE | 2022-10-18 08:49 | PC.NURSE ---
ENRIKE Calvillo notified of partial pain relief.
[2022-10-18] MEDS: LORazepam 1 MG TABLET PO (09:16)
[2022-10-18] MEDS: ondansetron HCL 4 MG/2 ML VIAL IVPUSH (09:19)
--- NOTE | 2022-10-18 09:24 | PC.NURSE ---
pt a&ox3, vss, pt verbalizing 8/10 pain. when assessing pt, pt was found throwing up d/t increased pain. provider notified and prescribed zofran. medications administered per provider order. pt sitting upward currently throwing up in emesis bag. pt has partner bedside for support. IVF still hung and running. call [facility] placed within reach.
--- NOTE | 2022-10-18 09:28 | ECG_ITS ---
Test Reason : chest pain Blood Pressure : / mmHG Vent. Rate : 047 BPM Atrial Rate : 047 BPM P-R Int : 172 ms QRS Dur : 104 ms QT Int : 438 ms P-R-T Axes : 057 055 024 degrees QTc Int : 387 ms Sinus bradycardia Otherwise normal ECG No previous ECGs available Referred By: Ric Hyde Electronically Signed By:TABATHA LYNN
[2022-10-18 09:30] LABS: Anion Gap 16 (12-20)
[2022-10-18 09:34] LABS: Alanine Aminotransferase 26 U/L (0-40); Albumin Level 4.3 g/dL (3.5-5.0); Alkaline Phosphatase 86 U/L (39-117); Aspartate Amino Transferase 24 U/L (5-37); Bilirubin Total 0.9 mg/dL (0.0-1.0); Blood Urea Nitrogen 13 mg/dL (9-16); Calcium 9.8 mg/dL (8.4-10.2); Carbon Dioxide 23 mmol/L (22-29); Chloride 106 mmol/L (96-108); Creatinine Clr Calc Pharmacy 127.7; Estimated Glomerular Filt Rate > 60; Glucose Random 112 mg/dL (60-115); Magnesium 1.6 mg/dL (1.6-2.6); Potassium 3.2 mmol/L (3.3-5.1); Sodium 142 mmol/L (135-145); Total Protein 7.3 g/dL (6.5-8.0)
--- NOTE | 2022-10-18 09:42 | PC.NURSE ---
pt c/o substernal chest pain. provider aware. ekg performed, documented and signed.
[2022-10-18 10:09] LABS: Troponin-I High Sensitivity < 2.7 ng/L (<3.5-35.0)
--- NOTE | 2022-10-18 11:59 | PC.NURSE ---
pt a&ox3, vss aside from bradycardia, pt verbalizing no pain annalee but c/o nausea. emesis bag bedside. call [facility] placed within reach.
[2022-10-18 12:00] LABS: Appearance Urine Clear; Color Urine Yellow; Glucose Urine UA Negative (Negative); Leukocyte Esterase Urine Negative (Negative); Nitrite Urine Negative (Negative); Specific Gravity - Urine 1.015 (1.005-1.025); UMIC TRIGGER UACC YES; Urine Blood Trace (Negative); Urine Ketones 15 mg/dL (Negative); Urine Protein Negative (Neg-Trace)
[2022-10-18 12:06] LABS: Bacteria Urine None Seen (None Seen); Hyaline Casts Urine 0-2 /LPF (0-2); Squamous Epithelial Cell Urine 0-2 /HPF (0-2); WBC Urine 0-5 /HPF (0-5)
[2022-10-18] MEDS: diphenhydrAMINE HCL 50 MG/ML VIAL 25 MG IVPUSH (12:51)
[2022-10-18] MEDS: Metoclopramide HCl 10 MG/2 ML VIAL IVPUSH (12:51)
--- NOTE | 2022-10-18 12:57 | PC.NURSE ---
medication administered per provider order. will reassess shortly.
[2022-10-18] MEDS: predniSONE 20 MG TABLET PO (13:57)
[2022-10-18] MEDS: HYDROmorphone HCl 0.5 MG/0.5 ML SYRINGE IVPUSH (14:01)
[2022-10-18] MEDS: cefTRIAXone sodium 1 GM in 0.9 % Sodium Chloride 50 ML IV (14:03)
--- NOTE | 2022-10-18 14:05 | PC.NURSE ---
medication administered per provider order.
--- NOTE | 2022-10-18 15:02 | PC.NURSE ---
pt currently sleeping - vss on the monitor. will reassess post medication administration pain level when pt wakes up. IVF and abx still currently hung and running. will d/c when able. call [facility] paljustina within reach.
[2022-10-18] MEDS: Magnesium Hydrox/Alum Hydrox 30 ML ORAL.SUSP 15 ML PO (15:57)
== END 2022-10-18 15:58 | disposition home or self-care (01) ==
PROVIDERS: Physician Assistant; Emergency Provider Emergency Medicine
DX: N13.2 Hydronephrosis with renal and ureteral calculous obstruction (principal); R11.2 Nausea with vomiting, unspecified
CPT/HCPCS: 36415; 76775; 80053; 81001; 83735; 84484; 85025; 93005; 96361; 96365; 96372; 96375; 99284; 99285; J0696; J1170; J1200; J1885; J2270; J2405; J2765